=== PATIENT | female | born 1985 | race Caucasian/White ===

== ENCOUNTER 2023-05-30 13:22 | Outpatient (CLI) | payer OTHER, SELFPAY | END 2023-05-30 13:23 | disposition home or self-care (01) | LOC: LONREF 13:23 | PROVIDERS: PCP Nurse Practitioner Family; Visit Provider Nurse Practitioner Family | DX: Z13.6 Encounter for screening for cardiovascular disorders (principal) | CPT/HCPCS: 80061 ==

== ENCOUNTER 2024-09-02 12:58 | Outpatient (CLI) | payer OTHER, SELFPAY | END 2024-09-02 12:59 | disposition home or self-care (01) | LOC: FRMREF 12:58 | PROVIDERS: PCP Nurse Practitioner Family; Visit Provider Nurse Practitioner Family | DX: I10 Essential (primary) hypertension (principal) | CPT/HCPCS: 80053 ==